=== PATIENT | male | born 1940 | race Caucasian/White ===

== ENCOUNTER → 2017-05-22 | Outpatient (CLI) | payer MEDICARE, OTHER ==
[~2017-05-22] MED LIST: ALLOPURINOL 30300 M2 PO; ASPIR 8181 MG PO; CENTRUM SILVER1 EAC2 PO; HYDROCHLOROTH12.5 M1 PO; IBUPROFEN 800800 M1 PO; IRON325 PO; LOMOTIL TABLET1 EACH PO; ONDANSETRON HCL4 M2 PO; PANTOPRAZOLE SO40 M1 PO; PERCOCET PO; SANDOSTATI50 MCG/1 M INJECTION; SENNA-DOCUSATE1 EACH PO; STOOL SOFTENER100 MG PO; TELMISARTAN40 MG PO; TRAMADOL 50 MG50 MG PO; ULTRAM 50MG TAB50 MG PO; XARELTO10 MG PO; ZYRTEC10 MG PO
== END ==
LOC: M.ULTRA 09:00
DX: C62.92 Malignant neoplasm of left testis, unspecified whether descended or undescended (principal); N43.2 Other hydrocele; K57.30 Diverticulosis of large intestine without perforation or abscess without bleeding; I10 Essential (primary) hypertension

== ENCOUNTER → 2017-06-10 | Outpatient (CLI) | payer MEDICARE, OTHER | LOC: M.RAD 12:14 | DX: M17.11 Unilateral primary osteoarthritis, right knee (principal) ==

== ENCOUNTER 2018-02-17 06:50 | Inpatient (IN) | payer MEDICARE, OTHER ==
[2018-02-05 08:49] LABS: URINE BILIRUBIN NEGATIVE (Negative); URINE BLOOD NEGATIVE (Negative); URINE CLARITY CLEAR; URINE COLOR YELLOW; URINE GLUCOSE-RANDOM NEGATIVE (Negative); URINE KETONES NEGATIVE (Negative); URINE LEUKOCYTES-REFLEX NEGATIVE (Negative); URINE NITRITE-REFLEX NEGATIVE (Negative); URINE PROTEIN NEGATIVE (Negative); URINE SPECIFIC GRAVITY 1.025 (1.005-1.030); URINE UROBILINOGEN 0.2 E.U./dl (0.2-1.0)
[2018-02-05 08:51] LABS: HEMATOCRIT 43.7 % (42.0-52.0); HEMOGLOBIN 14.8 gm/dL (14.0-18.0); MCH 34.3 pg (26.0-34.0); MCHC 33.9 g/dL (28.0-37.0); MCV 101.2 fL (80.0-100.0); MPV 8.8 fl. (7.2-11.1); RBC 4.31 mil/uL (4.50-6.00); RDW-CV 14.2 % (10.5-14.5); WBC 9.3 thou/uL (4.0-11.0)
[2018-02-05 09:19] LABS: INR 1.1; PROTIME 10.9 Seconds (9.20-11.50)
[2018-02-05 09:23] LABS: ALBUMIN 3.8 g/dL (3.4-5.0); CALCIUM 9.4 mg/dL (8.5-10.1); CREATININE 1.1 mg/dL (0.6-1.3); TOTAL BILIRUBIN 0.7 mg/dL (<0.1-1.0); TOTAL PROTEIN 7.8 g/dL (6.4-8.2)
--- NOTE | 2018-02-05 16:46 | EKG ---
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
[~2018-02-17] VITALS: Ht 172.7 cm; Wt 104.3 kg
[~2018-02-17 06:50] MED LIST changes: -PERCOCET PO; -SENNA-DOCUSATE1 EACH PO; -XARELTO10 MG PO
[2018-02-17 07:00] VITALS: BP 127/85
--- NOTE | 2018-02-17 13:43 | NUR ---
PATIENT TRANSFERRED FROM PACU TO ROOM 107. ALERT AND ORIENTED. DENIES PAIN. DRESSING TO RIGHT KNEE C/D/I. POLAR CARE, SCD'S AND TEDS IN PLACE. O2 2L, CAPNO IN PLACE. SAT 95%. PATIENT FORGETFUL AND IMPULSIVE. MULTIPLE QUESTIONS. LUNCH PROVIDED. PATIENT ONLY EATS 1 MEAL A DAY AT 1400. NOTIFIED DIETARY. ALSO ONLY TAKES PILLS AT 1400. AT BEDSIDE. 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 BED ALARM SET. WILL CONTINUE TO MONITOR.
[2018-02-17 13:52] VITALS: BP 113/61
[2018-02-17 16:00] VITALS: BP 116/68
--- NOTE | 2018-02-17 16:12 | NUR ---
PATIENT REMAINS ALERT AND ORIENTED BUT IS VERY FORGETFUL. O2 2L. CAPNO IN PLACE. OXYIR EFFECTIVE FOR PAIN RELIEF. PT WORKED WITH PATIENT THIS AFTERNOON. UP TO CHAIR WITH WALKER,GB, AND ASSIST OF 1. DRESSING TO KNEE C/D/I. POLAR CARE IN PLACE. LEFT DEDRICK IN PLACE. SCD'S. CALL LIGHT WITHIN REACH. WILL CONTINUE TO MONITOR.
[2018-02-17 20:45] VITALS: BP 98/56
[2018-02-18 01:10] VITALS: BP 99/53
[2018-02-18 01:22] LABS: HEMATOCRIT 37.2 % (42.0-52.0); HEMOGLOBIN 12.3 gm/dL (14.0-18.0); MCH 33.6 pg (26.0-34.0); MCHC 33.1 g/dL (28.0-37.0); MCV 101.5 fL (80.0-100.0); MPV 9.2 fl. (7.2-11.1); NUCLEATED RBCS 0 /100WBC; PLATELET COUNT* 241 thou/uL (150-400); RBC 3.67 mil/uL (4.50-6.00); RDW-CV 13.8 % (10.5-14.5)
[2018-02-18 01:32] LABS: CALCIUM 9.3 mg/dL (8.5-10.1); CREATININE 1.4 mg/dL (0.6-1.3); POTASSIUM 4.6 mmol/L (3.5-5.1)
[2018-02-18 02:02] LABS: ABSOLUTE LYMPHOCYTES 1.4 thou/uL (0.8-5.3); ABSOLUTE MONOCYTES 0.9 thou/uL (0.0-1.2); ABSOLUTE NEUTROPHILS 20.7 thou/uL (1.6-8.1)
[2018-02-18 02:03] LABS: PLATELET ESTIMATE ADEQUATE
--- NOTE | 2018-02-18 05:42 | NUR ---
PATIENT HAS BEEN ALERT AND ORIENTED. SOME MINOR COMPLAINTS OF PAIN THAT IS CONTROLLED WITH ORAL PAIN MEDICATIONS. TOLERATED CPM WELL TONIGHT, POLAR PACK IS ON. IV FLUIDS RUNNING IN LEFT FORARM. HAS USED THE URINAL TONIGHT. REFUSED THE FOOT PUMPS TONIGHT. HEMOVAC HAS PUT OUT BLOODY OUTPUT, DRESSING IS CLEAN, DRY AND INTACT. VITAL SIGNS HAVE BEEN STABLE ON 2 LITERS OF OXYGEN THROUGH NASAL CANNULA WITH A CAPNO. CALL LIGHT IS IN REACH, BED ALARM IS ON, WILL CONTINUE TO MONITOR.
[2018-02-18 08:25] VITALS: BP 106/62
[2018-02-18 10:35] VITALS: BP 106/62
--- NOTE | 2018-02-18 12:20 | NUR ---
CM CALLED IN PRESCRIPTIN CHARISSA GASPAR WRITTEN TO HIS PHARMACY-[facility] IN [place]. WILL CALL BACK FOR COPAY. PT.PLANS TO DISCHARGE HOME TODAY WITH . SHE CAN ASSIST HIM AT HOME, WELL HIS SON. LIVES IN A RANCH HOUSE. HE IS NORMALLY INDEPENDENT AT HOME.
--- NOTE | 2018-02-18 14:10 | NUR ---
I have reviewed and agree with the reassessment by student nurse Bunny Barron'srinivasan
[2018-02-18] MEDS ORDERED: XARELTO10 MG PO (14:13)
[2018-02-18] MEDS ORDERED: SENNA-DOCUSATE1 EACH PO (14:13)
[2018-02-18] MEDS ORDERED: PERCOCET PO (14:46)
--- NOTE | 2018-02-18 15:33 | NUR ---
PATIENT DISCHARGED TO HOME WITH HOME HEALTH. IV REMOVED. CPM, POLAR CARE, TEDS SENT WITH PATIENT. SCRIPTS FOR XARELTO,PERCOCET,SENNA GIVEN. PATIENT AND SPOUSE VERBALIZE UNDERSTANDING OF DC INSTRUCTIONS.
--- NOTE | 2018-03-10 10:22 | OP ---
[facility] [address] [place] [address] OPERATIVE REPORT Name: JEWELL BYNUM Room: [address] IN .R#: [id number] Admission: 02/17/18 Attend Phys: Mari Jones Discharge: 02/18/18 Date of : 44 Report #: [id number] THIS REPORT FOR: //name// CC: Sai Canas DATE OF SERVICE: 02/17/2018 PREOPERATIVE DIAGNOSIS: Right knee osteoarthritis. POSTOPERATIVE DIAGNOSIS: Right knee osteoarthritis. PROCEDURE: Right total knee arthroplasty with Navio. SURGEON: Sai Sellers II, DO. OFFICE SUPPORT: EMERITA Hicks. ANESTHESIA: General endotracheal. ESTIMATED BLOOD LOSS: 50 mL. ANTIBIOTICS: Ancef preoperatively. DRAINS: Medium Hemovac. COMPLICATIONS: None. CONDITION OF THE PATIENT: Stable to recovery room. IMPLANTS: Listed in the operative record and progress note. BRIEF HISTORY: The patient was seen in the preoperative area. Preoperative H and P was performed. Site was marked, questions were answered. Risks and benefits were discussed with the patient in detail about surgery. The patient wished to proceed, assuming all risks. DESCRIPTION OF PROCEDURE: The patient was taken to the OR suite, placed supine on the operative room table and given appropriate anesthesia. The patient's operative knee was sterilely prepped and draped. Surgery was begun by midline incision. This was carried down to the subcutaneous tissues. A medial parapatellar arthrotomy was performed and carried down to the bone. The patella was then everted and excess soft tissue was removed from around the femur as well as osteophytes from the femur and tibia. Establishing the Navio pins which were placed in the tibia and femur, the tracker guides were then applied in [address] [address] OPERATIVE REPORT Name: JEWELL BYNUM Room: [address]#: [id number] Admission: 02/17/18 Attend Phys: Mari Jones Discharge: 02/18/18 Date of : 44 Report #: [id number] appropriate fashion. The knee was then registered through the navigation software and cuts were prepared. The Navio robot was then activated. The drill holes were then placed through the femur and tibia. The femoral cutting block was then applied, checked with the Navio robot for appropriate alignment and appropriate cut was made. The four-in-one cut was then applied and checked for appropriate alignment and appropriate cut was made. Attention was then turned to the tibia. The tibial cutting block was then applied, checked with the Navio robot for appropriate alignment and slope. Appropriate cut was made and tibial bone was removed. Excess meniscus was removed. The tibial baseplate was then applied, checked with a drop jorge alberto for rotational alignment and pinned in appropriate position. Femur was then applied and the box cut was reamed. The trial femur was then applied. Trial spacer was then applied. This was then reduced and showed excellent fit and fill, with excellent stability of the knee through all ranges of motion. Upon utilizing the Navio software, it was found to have excellent range of motion and excellent stability of the knee with appropriate alignment. The patella was then reamed in appropriate fashion and sized to an appropriate size. Three peg holes were then drilled. Then it was trialed and showed excellent flexion and extension, with excellent tracking of the patella within the groove. These trials were then removed. The tibia was punched in appropriate fashion. Bony ends were cleansed with Pulsavac irrigation. Cement was mixed and applied to the final implants. These were then malleted in position, held with the knee in extension and compressed to allow the cement to cure. After it cured, excess was removed using [place] and osteotome. The wound was then copiously irrigated and the final spacer was then malleted into position. Tourniquet was deflated. Hemostasis was maintained with electrocautery. Pain cocktail was injected. PRP gel was sprayed throughout the internal aspects of the knee. Medium Hemovac drain was applied. At this time, the capsule was then closed with #2 FiberWire and #1 Vicryl in [id number] fashion. Tracking pins were removed. The skin was then closed with 2-0 Vicryl and a running 3-0 Monocryl with nylon for the pin sites. Sterile dressing and Dermabond was applied. Ganga wrap and PolarCare applied. The patient transported to recovery in stable condition. Counts were correct throughout the procedure. <ELECTRONICALLY SIGNED> By: Sai Sellers II, DO 03/10/18 1022 [id number] Sellers II, DO /nt
== END 2018-02-18 15:37 | disposition home health service (06) | DRG 470 ==
LOC: M.ORTHSURG 06:50 → M.TBA 06:50 → M.PRE 09:02 → M.ORTHSURG 12:56
PROVIDERS: Family Medicine; Orthopaedic Surgery; ADMIT Internal Medicine
PROC: 0SRC0J9 Replacement of Right Knee Joint with Synthetic Substitute, Cemented, Open Approach (ICD-10-PCS; principal; 2018-02-17)
DX: M17.11 Unilateral primary osteoarthritis, right knee (principal); I10 Essential (primary) hypertension; K59.00 Constipation, unspecified; K21.9 Gastro-esophageal reflux disease without esophagitis; Z87.442 Personal history of urinary calculi; Z79.82 Long term (current) use of aspirin; Z79.899 Other long term (current) drug therapy; Z88.2 Allergy status to sulfonamides; Z82.49 Family history of ischemic heart disease and other diseases of the circulatory system